=== PATIENT | female | born 1935 | race Caucasian/White ===

== ENCOUNTER 2022-11-24 17:26 | Emergency (ER) | payer MEDICARE ==
[~2022-11-24] VITALS: Wt 52.7 kg
[~2022-11-24 17:26] MED LIST: ARICEPT10 M1 PO; ARTHRITIS PAIN650 MG PO; CLARITIN10 MG PO; COLACE 2-IN-11 EACH PO; COZAAR100 MG PO; DULCOLAX10 M1 R; DULCOLAX5 M1 PO; FLEET ENEMA 13133 ML R; HYDROCHLOROTH12.5 M3 PO; HYDROCODONE-AC1 EAC1 PO; LOW DOSE ASPIRI81 M1 PO; MILK OF MA400 MG/52 PO; MIRALAX17 GM PO; PAIN RELIEVER325 MG PO; POTASSIUM CHLO20 ME4 PO; REFRESH CELLUV1 EACH OU; VISTARIL50 MG IM; VISTARIL50 MG PO; VITAMIN D350 MC2 PO; [UNRECOGNIZED DRUG - OTHER] PO
[2022-11-24 17:55] LABS: BASO % 0.4 % (0.0-1.0); EOS % 0.5 % (1.0-4.0); HEMATOCRIT 32.9 % (37.0-47.0); LYMPH # 2.1 10*3/uL (1.3-4.4); LYMPH % 27.4 % (27.0-41.0); MEAN CELL VOLUME 91.6 fl (81.0-99.0); MEAN CORPUSCULAR HGB 29.5 pg (27.0-31.0); MEAN CORPUSCULAR HGB CONC 32.2 g/dl (33.0-37.0); MEAN PLATELET VOLUME 11.8 fl (9.6-12.3); MONO # 0.5 10*3/uL (0.1-1.0); MONO % 7.2 % (3.0-9.0); NEUT # 4.8 10*3/uL (2.3-7.9); NEUT % 64.4 % (47.0-73.0); PLATELET COUNT AUTOMATED 158 10*3/uL (130-400); RED BLOOD COUNT 3.59 10*6/uL (4.10-5.10); RED CELL DISTRI WIDTH 13.7 % (0-14.5); WHITE BLOOD COUNT 7.5 10*3/uL (4.8-10.8)
[2022-11-24 18:10] LABS: ALKALINE PHOSPHATASE 44 U/L (46-116); BUN 52 mg/dl (9-23); CHLORIDE 105 mmol/L (98-107); POTASSIUM 4.4 mmol/L (3.4-5.1); SGPT/ALT 24 U/L (10-49); TOTAL PROTEIN 6.9 gm/dL (6.0-8.0)
[2022-11-24 18:14] LABS: ETHYL ALCOHOL < 3.0 mg/dl (<3)
[2022-11-24 18:46] LABS: BILIRUBIN Negative (Negative); BLOOD Negative (Negative); CLARITY Clear (Clear); COLOR Yellow (Yellow); GLUCOSE Negative (Negative); KETONE 1+ (Negative); LEUKO ESTERASE 2+ (Negative); NITRITE Negative (Negative); UROBILINOGEN 0.2 E.U./dl (0.0-1.0)
[2022-11-24 18:54] LABS: URINE AMPHETAMINES Negative (1000ng/ml); URINE BARBITURATES Negative (200ng/ml); URINE BENZODIAZEPINES Negative (200ng/ml); URINE CANNABINOIDS (THC) Negative (50ng/ml); URINE COCAINE Negative (300ng/ml); URINE METHADONE Negative (300ng/ml); URINE OPIATES Negative (300ng/ml); URINE PHENCYCLIDINE Negative (25ng/ml)
[2022-11-24 18:56] LABS: BACTERIA 2+; WBC 21-30 wbc/hpf (0-5)
== END 2022-11-24 22:52 | disposition admitted as inpatient to this hospital (09) ==
LOC: ED 17:26
PROVIDERS: Family Medicine
DX: F23 Brief psychotic disorder (principal); N39.0 Urinary tract infection, site not specified; Z79.899 Other long term (current) drug therapy; Z79.82 Long term (current) use of aspirin